=== PATIENT | male | born 1985 | race Caucasian/White ===

== ENCOUNTER 2021-09-05 08:00 | Outpatient (CLI) | payer OTHER ==
[2021-09-05 20:44] LABS: CHLAMYDIA TRACHOMATIS DNA NEGATIVE (NEGATIVE); NEISSERIA GONORRHOEAE DNA NEGATIVE (NEGATIVE)
== END 2021-09-05 23:59 | disposition home or self-care (01) ==
LOC: LAB.N 08:00
PROVIDERS: ATTEND Family Medicine
DX: R30.0 Dysuria (principal)
CPT/HCPCS: 87086; 87491; 87591; 87661

== ENCOUNTER 2021-09-09 13:32 | Outpatient (CLI) | payer OTHER ==
[2021-09-10 22:42] VITALS: BP 121/75
--- NOTE | 2021-09-10 22:42 | SLEEP CARE CONSULTATION ---
Information from patient questionnaire entered by Maine Leon MA. I have reviewed and concur with the information entered by Maine Leon MA. This document represents the service I personally performed and the decisions made by me, Leighton Low MD, [facility]. History of Present Illness Service Date and Time: 09/09/2021 1332 Reason for Visit: New patient (ONSET 03/16/2019, ) Chief Complaint: reports: Unrefreshed sleep, Snoring (SWEAT), Excessive daytime sleepiness, Frequent awakenings at night, Other (SWEAT) Date of Onset: YEARS Usual bedtime: 8 PM Time it takes to fall asleep: 15 MIN - 2 HOURS Snores at night: Yes Observed to quit breathing while asleep: Yes Sleeps alone due to snoring: Yes Number of times waking at night: 1-2 Reasons for waking at night: reports: Bathroom, Other Toss, Turn, or Twitch while sleeping: Yes Recalls having dreams: No Usually gets out of bed at: [id number] Feels refreshed in the morning: No Morning headache: Yes Sleepy or fatigued during the day: Yes Ever fallen asleep while driving: No Takes day naps: Yes Dreams during day naps: No Prior sleep studies: No Additional HPI information: I had the pleasure of seeing Mr. Cifuentes today regarding the possibility of him having a sleep disorder. As you know, he is a 36-year-old gentleman who complains of frequent awakenings, persistent fatigue, loud snore, unrefreshed sleep, and excessive daytime sleepiness. The patient tells me that he normally goes to bed around 8 pm, and it takes him approximately 15 - 120 minutes to fall asleep. He has been told that he snores loudly and irregularly at night. He has also been observed to stop breathing in his sleep. His has to sleep in a separate room. He can recall waking up on the average of 1 - 2 times during the night. Most of the time he wakes up because of having to use the bathroom and night sweat. He has awakened occasionally because of his own snoring, choking, and having to gasp for air. There is a lot of tossing and turning in his sleep. No somniloquy (sleep talking) or somnambulism (sleep walking). Generally, there is no recollection of dreams. In the morning he usually gets up out of the bed around 4:30 - 5 a.m. not feeling refreshed nor rested. He usually has a morning headache. During the day he complains of feeling sleepy and fatigued. His score on [place] Sleepiness Scale is 12 out of 24. He never has fallen asleep while driving nor has had any accident due to sleepiness. He usually takes naps during the day. He reports having impaired concentration during the day. - Parasomnia Symptoms Ever been unable to move upon waking from sleep: Yes Walks in sleep: No Talks in sleep: No Ever acted out dreams in sleep: No Ever felt weak in the knees when startled or emotional: Yes Bothered by creepy, crawly, restless sensations in legs: No Problems with memory or concentration: Yes Subjective Initial [place] Sleepiness Scale score: 12 (09/09/2021) Past Medical History Past Medical History: reports: Anxiety, Depression, Mood disorder, Attention deficit Social History The patient's occupation is a [employer]. Patient is and lives in . Have you smoked in the past 12 months: Yes Cigarettes per day (20/pack): 20 Years of smokin Quit date: 2015 Smoking Pack Years: 16.0 Alcohol use: No Caffeine use: Yes Caffeine amount and frequency: 2 X DAILY Family History Family history of sleep disordered breathing: Yes Family Hx Sleep Apnea: Mother: Snoring, Sleep apnea - Treated, Father: Snoring, Sleep apnea - Treated Allergies and Home Medications Known drug allergies: No Drug allergies reviewed: Yes Home medication list reviewed: Yes Review of Systems Cardiovascular: reports: high blood pressure, palpitations, leg or foot swelling Respiratory: reports: shortness of breath Gastrointestinal: reports: difficulty swallowing, diarrhea Urinary: reports: frequency, urgency Neurological: reports: headaches, disorientation, gait or balance problems Psychiatric: reports: Attention Deficit Hyperactivity, anxiety, depression, mood disorder Ear/Nose/Throat: reports: nasal congestion, sinus problems, dry mouth/throat, hoarseness Endocrine: reports: sluggishness, too hot or cold, excessive thirst, increased appetite, increased urination, unexplained weakness Musculoskeletal: reports: joint pain, neck pain, back pain, joint swelling, muscle pain or cramping, mobility problems Immunologic: denies: sneezing, rash, itching, allergies to food or environment, other Physical Exam Vital signs obtained and entered by: ÁNGEL CANDELARIA Blood Pressure: 121/75 (RESP 16, PULSE 92, RIGHT,) Cuff size: wrist Heart Rate: 94 O2 Saturation: 98 (CLOTH MASK) Height: 5 ft 4 in Weight: 170 lb Body Mass Index: 29.2 BMI Classification: Overweight Neck circumference: 15 (INCHES) HEENT: No craniofacial malformation Nostrils: patent to airflow Turbinates: normal Septum: midline Mouth and throat: normal Soft palate: normal Hard palate: normal Uvula: normal Uvula visualization: 25% Mallampati Class III Tongue: normal in size Tonsils: small Chin and jaw: normal size and position Neck: normal w/o lymphadenopathy or thyromegaly Heart: regular rate and rhythm Lungs: clear bilaterally Extremities: no edema or clubbing Neurologic: intact, no focal deficits Impression and Plan IMPRESSION: 1. Obstructive Sleep Apnea-Hypopnea Syndrome, as suggested by history of loud and irregular snoring, observed cessation of breath while asleep, unrefreshed sleep, morning headache, and daytime hypersomnolence. Narrow oropharynx and obesity are common predisposing factors for obstructive sleep apnea-hypopnea syndrome. I recommend proceeding to polysomnography to confirm the diagnosis and to assess severity. I informed the patient of what the sleep studies involve and after some discussion, he agreed to proceed. Plan: 1. Schedule an in-laboratory polysomnography. 2. Avoid long distance driving or when feeling sleepy. 3. Avoid alcohol, sedative and muscle relaxant around bedtime. 4. Attempt to lose weight. 5. Return for follow up after the sleep study. Follow up with Sleep Care in: 1-2 months Visit Type: In Office Time Spent with Patient (minutes): 20 Provider Statement: I spent 100% of the Face to Face Visit with the patient with greater than 50% spent counseling the patient and coordination of care.
== END 2021-09-09 13:33 | disposition home or self-care (01) ==
LOC: SC 13:32
PROVIDERS: ATTEND Internal Medicine Pulmonary Disease
DX: R06.83 Snoring (principal); G47.8 Other sleep disorders; R06.81 Apnea, not elsewhere classified; F51.04 Psychophysiologic insomnia; G47.10 Hypersomnia, unspecified; F32.A Depression, unspecified; Z87.891 Personal history of nicotine dependence; E66.3 Overweight; Z68.29 Body mass index [BMI] 29.0-29.9, adult
CPT/HCPCS: 99202; 99212

== ENCOUNTER 2021-09-13 19:16 | Outpatient (CLI) | payer OTHER | END 2021-09-13 19:17 | disposition home or self-care (01) | LOC: SC 19:16 | PROVIDERS: ATTEND Internal Medicine Pulmonary Disease | DX: G47.33 Obstructive sleep apnea (adult) (pediatric) (principal) | CPT/HCPCS: 95810 ==

== ENCOUNTER 2021-10-02 09:08 | Outpatient (CLI) | payer OTHER ==
[2021-10-02 10:03] VITALS: BP 131/97
--- NOTE | 2021-10-02 10:03 | SLEEP CARE CONSULTATION ---
Information from patient questionnaire entered by Maine Leon MA. I have reviewed and concur with the information entered by Maine Leon MA. This document represents the service I personally performed and the decisions made by , Cathy Barnes ARNP. History of Present Illness Service Date and Time: 10/02/2021 0908 Initial [place] Sleepiness Scale score: 12 Current [place] Sleepiness Scale score: 14 Additional HPI information: ADRIENNE ULLOA returns for follow up and results of the recently performed polysomnography. I explained the pathophysiology behind obstructive sleep apnea. We then spent quite a bit of time discussing different treatment options. For mild obstructive sleep apnea, surgery and oral appliance are alternatives to nasal CPAP therapy but in moderate or severe cases, nasal CPAP is the most effective a nd reliable treatment. Because apnea is primarily in supine position, then positional management therapy could be effective. Methods discussed such as positioning with pillows to prevent supine sleep. I reviewed the impact of weight changes on sleep apnea and strongly recommended losing weight. After some discussion, the patient opted to go with the nasal CPAP therapy. Nasal autoCPAP set at 4-15 cmH20 will be ordered with rationale explained. A manual titration study will be ordered if unable to find optimal pressure with office adjustments. I explained how CPAP machine works and what to expect when using the machine. Using CPAP every night in order to get used to it was emphasized. Patient advised to put CPAP mask on before getting into bed so as not to fall asleep without CPAP. To assist acclimation to CPAP use, it could also be used for a short time during day while reading or watching TV. The patient was instructed to call the CPAP supplier to discuss any mechanical problem that may occur. If the mask given is uncomfortable or is difficult to keep on through the night even with adjustment, contact the CPAP supplier as many will replace with another mask style if notified before 30 days. If snoring or perceives is not getting enough air or too much air from the machine, notify this office. Patient does not drink alcohol. Patient was cautioned about risks of drowsy driving until sleepiness symptoms resolve. Patient denies drowsy driving. Sleep Study - Results Type of Sleep Study: Polysomnography (F/U POLY, 09/13/2021 [facility], POS,) Polysomnography/Home Sleep Study results: IMPRESSION: The quality of the study is good. The patient had reduced sleep efficiency. The sleep architecture was abnormal for sleep fragmentation and reduced amount of time spent in slow wave sleep (N3). Respiratory monitoring showed moderate obstructive sleep apnea-hypopnea (AHI = 17.9) associated with frequent arousals, oxyhemoglobin desaturation and mild hypoxia (bhumi oxygen saturation of 85%). The respiratory events occurred almost exclusively during supine sleep (supine AHI = 45.6; non-supine = 3.86). Snore was light in intensity. There was no significant periodic leg movement of sleep. Cardiac rhythm was normal sinus rhythm without significant arrhythmia. No abnormal behavior (parasomnia) observed during the night. Allergies and Home Medications Known drug allergies: No Drug allergies reviewed: Yes Home medication list reviewed: Yes (no changes) Review of Systems Review of systems same as previous: Yes (no changes) Physical Exam Vital signs obtained and entered by: ÁNGEL CANDELARIA Blood Pressure: 131/97 (RESP 20, PULSE 68, RIGHT) Cuff size: wrist Heart Rate: 67 O2 Saturation: 99 (PAPER MASK) Height: 5 ft 4 in Weight: 165 lb Weight change since last visit: LOSE - PORTIONING Body Mass Index: 28.3 BMI Classification: Overweight Impression and Plan 1. Obstructive Sleep Apnea-Hypopnea Syndrome, moderate, with lowest oxygen saturation of 85%. Obviously this is the cause of the patients symptoms of unrefreshed sleep, and excessive daytime sleepiness. Positive pressure therapy could benefit anxiety, depression, mood disorder and attention deficit. As mentioned above, the patient will be started on nasal autoCPAP therapy with pressure set at 4-15 cmH2O. Compliance guidelines also reviewed. A copy of compliance guidelines will be given for reference at check out. Because the apnea is more severe supine, I instructed to avoid sleeping supine using pillow positioning until able to start CPAP use. * Nasal auto CPAP therapy, pressure at 4-15 cm H2O. * Attempt to lose weight. * Avoid alcohol consumption near bedtime. * Avoid supine sleep until using CPAP. * The patient is again cautioned about driving until sleepiness completely resolves. * Return one month after CPAP obtained. I will assess response to therapy and compliance at that time. Counseling Topics: Sleeping position, Weight loss health impact Visit Type: In Office Time Spent with Patient (minutes): 20 Provider Statement: I spent 100% of the Face to Face Visit with the patient with greater than 50% spent counseling the patient and coordination of care.
== END 2021-10-02 09:09 | disposition home or self-care (01) ==
LOC: SC 09:08
PROVIDERS: ATTEND Nurse Practitioner Family
DX: G47.33 Obstructive sleep apnea (adult) (pediatric) (principal)
CPT/HCPCS: 99212; 99213

== ENCOUNTER 2022-01-22 09:40 | Outpatient (CLI) | payer OTHER ==
--- NOTE | 2022-01-22 08:56 | SLEEP CARE CONSULTATION ---
Information from patient questionnaire entered by Clarissa Wu. I have reviewed and concur with the information entered by Clarissa Wu. This document represents the service I personally performed and the decisions made by , Cathy Barnes ARNP. History of Present Illness Service Date and Time: 01/22/2022 0840 Previous diagnosis: Moderate, Obstructive Sleep Apnea-Hypopnea Syndrome AHI: 17.9 (in 2021) Reason for follow up: first compliance (RESMED) Equipment type: CPAP Equipment obtained from: [facility] (got initial supplies) Mask style: Nasal pillows Mask brand: Resmed (AirFit [id number]) Backup mask available: No (will keep old mask when replaced) Last cushion change: 6 weeks Type of Sleep Study: Polysomnography (F/U POLY, 09/13/2021 [facility], POS,) HPI additional information: ADRIENNE ULLOA was diagnosed to have moderate, AHI 17.9, obstructive sleep apnea- hypopnea syndrome and returns via video telehealth visit today for CPAP therapy first compliance follow-up. Sleep Study - Results Type of Sleep Study: Polysomnography (F/U POLY, 09/13/2021 [facility], POS,) CPAP Compliance Data - Data Reviewed with Patient Average duration of nightly device use: 5 hours 57 minutes Compliance rate %: 89 (12-17-21 to 01-21-22; 36/36 days used) Current pressure setting (cmH2O): 4-15 (median 6.0, avg 8.4, max 9.7) Average residual AHI: 1.6 Central apnea: 0.3 Obstructive apnea: 0.7 Average large leak: 0.0 Subjective Missed days of use due to: reports: illness, other (no power last night) Patient concerns: reports: mask leak noise (high pitched noise which improved with mask adjustment). denies: aerophagia, mask discomfort, air blowing in eyes, condensation in mask/hose, nasal congestion, dry mouth, nose, throat, epistaxis Observed to snore while using device: No Current pressure setting perceived as: comfortable (to too low) On therapy, patient: reports: sleeping better, awakening more refreshed, being more awake and alert during the day, more rested overall. denies: drowsiness while driving Initial [place] Sleepiness Scale score: 12 Current [place] Sleepiness Scale score: 11 Allergies and Home Medications Drug allergies reviewed: Yes (NKDA) Home medication list reviewed: Yes (no changes) Review of Systems Review of systems same as previous: Yes (no changes) Physical Exam Vital signs obtained and entered by: CLARISSA Jackson MA Height: 5 ft 4 in Weight: 169 lb (pt reported) Body Mass Index: 29.0 BMI Classification: Overweight Impression and Plan 1. Obstructive Sleep Apnea-Hypopnea Syndrome, moderate, with good treatment compliance and good apnea control. On CPAP therapy, the patient has better sleep quality and is more rested overall. Patient has significant improvement of their sleep apnea and are satisfied with current CPAP therapy. Patient has been having some mask leak noises but this improves with adjusting his mask cushion. He feels as if the pressure could be a little higher at the beginning of the night because he cannot get a deep breath at first. I will increase his ramp starting pressure to 6 cm H2O for patient comfort and to reduce air hunger. The patients pressure will be changed to autoCPAP 6-10 cmH20 to reflect pressure being used. Patient advised to contact me if pressure change is uncomfortable so that it can be adjusted. Goals for apnea control discussed. Patient's apnea severity and rationale for treatment to reduce apnea, improve sleep quality and reduce cardiovascular and cerebrovascular events was reviewed. I also reviewed the benefit of consistent device use of CPAP for depression, anxiety, mood disorder and attention deficit. 2. Overweight, unspecified. Currently patients BMI is 29. Obesity increases the risk of apnea, CPAP pressure requirements and overall health risks especially cardiovascular and diabetes. Thus patient is advised to lose weight. * Change auto CPAP pressure to 8-10 cmH2O * Increase ramp starting pressure to 6 cmH2O * Notify me if snoring with mask or feeling that the pressure is too much or too little * Attempt to lose weight * Call this office if any problems using CPAP * Return for follow up in 1-2 months, or sooner if concerns arise Counseling Topics: Spare mask, Weight loss health impact Visit Type: Telehealth Video Video Type: Alexi Patient Location: Home Location of Provider: Office Patient agrees and consents to this telehealth visit type: Yes Patient agrees to have their insurance billed: Yes Time Spent with Patient (minutes): 17 Provider Statement: I spent 100% of the Telehealth Video Call with the patient with greater than 50% spent counseling the patient and coordination of care.
== END 2022-01-22 09:41 | disposition home or self-care (01) ==
LOC: SC 09:40
PROVIDERS: ATTEND Nurse Practitioner Family
DX: G47.33 Obstructive sleep apnea (adult) (pediatric) (principal); E66.3 Overweight; Z68.29 Body mass index [BMI] 29.0-29.9, adult